=== PATIENT | male | born 1960 | race Caucasian/White ===

== ENCOUNTER → 2016-08-20 | Day surgery (SDC) | payer OTHER ==
[~2016-08-20] MED LIST: [UNRECOGNIZED DRUG - OTHER]
--- NOTE | ~2016-08-20 | OR ---
Unit #: [id number] #: [id number] Patient: HÉCTOR ANGELA [id number] [address] [place], [place] [address] [id number] MR#: [id number] NAME: HÉCTOR ANGELA ROOM: Date of Procedure: 08/20/2016 Admission Date: 08/20/2016 Surgeon: Gt Cai M.D. : 1960 Attending Physician: Gt Cai M.D. Primary Care Physician: Steffen Henderson M.D. OPERATIVE REPORT PRIMARY CARE PHYSICIAN Steffen Henderson M.D. PREOPERATIVE DIAGNOSIS Colorectal cancer screening in an average-risk patient. PROCEDURES PERFORMED Colonoscopy and polypectomy. POSTOPERATIVE DIAGNOSES 1. The patient had 2 sessile polyps, one each in the transverse colon and other one being in the rectum. These were approximately 8 mm and 3 mm each. Both were removed using snare polypectomy, retrieved and sent for histology. 2. Mild sigmoid and descending colon diverticulosis. 3. Rest of the examination up to cecum and terminal ileum was normal. The quality of the prep was excellent. RECOMMENDATIONS Follow up results of polyp histology and consider repeat colonoscopy in 5 years. SEDATION USED MAC. DESCRIPTION OF PROCEDURE Following detailed explanation of the potential risks and complications of a colonoscopy, namely perforation, bleeding, and complications related to sedation, the patient was brought to GI lab and laid in the left lateral decubitus position. A digital rectal examination was performed, which was normal. Lubricated tip of the Olympus video colonoscope was inserted through the anus and advanced under direct vision. The scope was advanced and passed up to sigmoid into descending colon. Scant small diverticula were noted in this area. The scope tip was then navigated all the way up to cecum with visualization of the ileocecal valve and appendiceal orifice. Preparation was excellent with good visualization and photodocumentation was obtained. Last few inches of the terminal ileum also visualized after intubation of the ileocecal valve and appeared normal. Successive segments of the colonic mucosa were examined upon withdrawal. The patient was noted to have 2 sessile polyps, the largest of these was 8 mm in size in the transverse colon and was removed using snare cautery polypectomy. The second small polyp was 3 to 4 mm in size Unit #: [id number] #: [id number] Patient: HÉCTOR ANGELA in the rectum and was removed using snare polypectomy. Both the polyps were retrieved and sent for histology. No additional polyps were noted. Other than the scant diverticula, no other abnormalities noted. The patient did not have any hemorrhoids at anal verge. The scope was then withdrawn. The patient returned to recovery area. He tolerated the procedure without any postprocedure complications. Dictated by... Collins Helton/soniya TD: 08/20/2016 22:30 JOB #: [id number] CC: Steffen Henderson M.D. OPERATIVE REPORT Page 1 of 1 X Gt Cai MD X PROCEDURE OPERATIVE NOTE
== END | disposition home or self-care (01) ==
LOC: COPS 11:30
DX: Z12.11 Encounter for screening for malignant neoplasm of colon (principal); K63.5 Polyp of colon; K62.1 Rectal polyp; K57.30 Diverticulosis of large intestine without perforation or abscess without bleeding; Z98.41 Cataract extraction status, right eye; Z98.42 Cataract extraction status, left eye
CPT/HCPCS: 88305; J2250